=== PATIENT | female | born 1985 | race Hispanic/Latino ===

== ENCOUNTER 2020-01-23 08:02 | Emergency (ER) | payer SELFPAY ==
[2020-01-23 08:40] VITALS: BP 111/63; PULSE 90; RESP 16; TEMP 36.3; O2SAT 99
--- NOTE | 2020-01-23 08:56 | ED.GENADULT ---
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 Denies injury. Denies any urinary symptoms to include dysuria or hematuria. Denies fever, nausea, vomiting, constipation, diarrhea. Currently rates her pain 7/10 and has been taking Tylenol without relief. MD complaint: Left flank pain Related Data Home Medications Medication Instructions Recorded Confirmed No Home Medications 01/23/20 01/23/20 Allergies Allergy/AdvReac Type Severity Reaction Status Date / Time No Known Allergies Allergy Verified 01/23/20 08:50 Review of Systems Review of Systems: Narrative: CONSTITUTIONAL: Denies body aches, fever, chills, or sweats. EYES: Denies visual changes, redness, or discharge. ENT: Denies rhinorrhea, congestion, sore throat, or otalgia. CARDIOVASCULAR: Denies chest pain, palpitations, or edema. RESPIRATORY: Denies cough or dyspnea. GASTROINTESTINAL: Denies abdominal pain, nausea, vomiting, or diarrhea. GENITOURINARY: Denies dysuria or hematuria.+ Left flank pain SKIN: Denies rash, itching, or wounds. MUSCULOSKELETAL: Denies back pain, joint pain, or myalgia. NEUROLOGIC: Denies headache, numbness, tingling, or weakness. PSYCH: Denies depression or anxiety. PMFSH Comments At time of signature, I have reviewed and agree with nursing past medical, surgical, social and family history unless otherwise noted. Please see nursing chart for further information. There is no relevant family history pertinent to the presenting complaint Exam Narrative: Exam Narrative: GENERAL: Well-appearing, well-nourished, and in mild pain distress. HEAD: Normocephalic, atraumatic. EYES: EOMI. No redness or drainage. Conjunctivae normal. ENT: Mucous membranes pink and moist. NECK: Normal AROM. Supple. No lymphadenopathy. CHEST: No respiratory distress. Clear to auscultation. HEART: Regular rate and rhythm. No murmur appreciated. Normal peripheral pulses. ABDOMEN: Soft, nondistended, normal active bowel sounds.-CVAT. + Tenderness generally. Patient guarding entire abdomen. MUSCULOSKELETAL: No bony tenderness. EXTREMITIES: Normal range of motion. No edema. SKIN: Warm, dry, no rash. Capillary refill normal. Normal skin turgor. NEURO: No focal deficits. Alert and oriented x3. Gait steady. PSYCH: Normal affect. No signs of depression or anxiety. Course Vital Signs Vital signs: Vital Signs Temperature 97.3 F L 01/23/20 08:40 Pulse Rate 90 01/23/20 08:40 Respiratory Rate 16 01/23/20 08:40 Blood Pressure 111/63 01/23/20 08:40 Pulse Oximetry 99 01/23/20 08:40 Temperature 97.3 F L 01/23/20 08:40 Pulse Rate 90 01/23/20 08:40 Respiratory Rate 16 01/23/20 08:40 Blood Pressure 111/63 01/23/20 08:40 Pulse Oximetry 99 01/23/20 08:40 Reviewed Transfer Transfered to: Joce Transfer rationale: Left flank pain Accepting physician: Francisco Medical Decision Making Differential Diagnosis Differential Diagnosis: Kidney stone, pyelonephritis, constipation, diverticulitis, colitis, muscle strain Vital Signs Vital Signs: Vital Signs Temperature 97.3 F L 01/23/20 08:40 Pulse Rate 90 01/23/20 08:40 Respiratory Rate 16 01/23/20 08:40 Blood Pressure 111/63 01/23/20 08:40 Pulse Oximetry 99 01/23/20 08:40 Temperature 97.3 F L 01/23/20 08:40 Pulse Rate 90 01/23/20 08:40 Respiratory Rate 16 01/23/20 08:40 Blood Pressure 111/63 01/23/20 08:40 Pulse Oximetry 99 01/23/20 08:40 Reviewed Critical Care Time Critical Care Time Critical Care Time: No Discharge Plan Discharge Clinical Impression: Acute left flank pain Patient Disposition: Acute Care Hospital Cond
== END 2020-01-23 09:02 | disposition short-term general hospital (02) ==
PROVIDERS: Emergency Provider Nurse Practitioner; PCP Registered Nurse
DX: R10.9 Unspecified abdominal pain (principal)
CPT/HCPCS: 99201; G0463

== ENCOUNTER 2020-01-23 09:27 | Emergency (ER) | payer SELFPAY ==
--- NOTE | ~2020-01-23 | CT_ITS ---
EXAMINATION: CT abdomen pelvis w con DATE: 01/23/2020 10:26 INDICATION: Left flank pain. TECHNIQUE: Computed tomography (CT) of the abdomen and pelvis was performed with 100 mL Omnipaque 350 intravenous contrast. Automated exposure control and iterative reconstruction technique were employe d. The dose-length product was 393.35 mGy-cm. COMPARISON: None. FINDINGS: The visualized portions of the lung bases demonstrate mild atelectasis. No pleural effusion . The heart size is normal. The liver and spleen are normal. There are gallstones in the gallbladder, which is normal in size. The pancreas and adrenal glands are normal. There are cysts in the kidneys measuring up to 1.9 cm on the left. There are no dilated loops of bowel. The appendix is normal. Ther e are no pathologically enlarged lymph nodes. There is no free intraperitoneal fluid. There is mild t horacic spondylosis. IMPRESSION: 1. No etiology for the patient's symptoms. Reviewed, dictated and finalized at location A.
[2020-01-23 09:35] VITALS: BP 106/68; PULSE 91; RESP 14; TEMP 36.6; O2SAT 100
--- NOTE | 2020-01-23 09:54 | ED.ABDPAIN ---
HPI - Abdominal Pain General Chief Complaint: Back Pain/Injury Stated Complaint: L flank pain from UC Time Seen by Provider: 01/23/20 09:43 History of Present Illness HPI narrative: Pain in left flank and LUQ for about the past week. Associated with dyuria and urinary frequency. She has had this pain in the past without seeking care. No fever, chills, diarrhea. Related Data Allergies Allergy/AdvReac Type Severity Reaction Status Date / Time No Known Allergies Allergy Verified 01/23/20 08:50 Review of Systems Review of Systems: All systems reviewed & are unremarkable except as noted in HPI and below Constitutional: Constitutional: Denies fever(s) Cardiovascular: Cardiovascular: Denies chest pain Respiratory: Respiratory: Denies dyspnea Genitourinary: Genitourinary: Denies hematuria, Reports nocturia and Reports dysuria [facility] Social History Social History Gender identity (if verbalized by the patient): Female Exam Const: General: healthy appearing, no acute distress and alert Orientation/consciousness: patient oriented x3 HENMT: Head: normal to inspection Neck: Neck: normal visual inspection and no lymphadenopathy Chest: Chest palpation & inspection: no tenderness Resp: Effort & Inspection: normal respiratory effort Auscultation: clear to auscultation bilaterally, no rales, no rhonchi and no wheezes Cardio: Jugular venous distension: no JVD Rate: regular rate Rhythm: regular rhythm Heart sounds: no murmurs GI: Inspection: non-distended GI Palp: Yes Soft to palpation, Yes Tenderness to palpation present (GI), No Guarding due to palpation present (GI) and No Rebound tenderness present : General: Yes no CVA tenderness Skin: General skin exam: normal color Neuro: General: patient oriented x3 and moves all extremities Speech: normal speech Extrem: General: no edema Psych: Appearance: well kempt Affect: normal affect Course Vital Signs Vital signs: Vital Signs Temperature 36.6 C 01/23/20 09:35 Pulse Rate 91 01/23/20 09:35 Respiratory Rate 14 01/23/20 09:35 Blood Pressure 106/68 01/23/20 09:35 Pulse Oximetry 100 01/23/20 09:35 Temperature 36.6 C 01/23/20 09:35 Pulse Rate 64 01/23/20 11:35 Respiratory Rate 14 01/23/20 11:35 Blood Pressure 110/65 01/23/20 11:35 Pulse Oximetry 99 01/23/20 11:35 MDM - Abdominal Pain Lab Data Result diagrams: 01/23/20 09:51 01/23/20 10:36 Labs: Lab Results 01/23/20 01/23/20 01/23/20 Range/Units 09:51 09:51 10:12 WBC 5.1 (4.5-10.0) K/mm3 RBC 4.32 (4.2-5.4) M/mm3 Hgb 13.9 (12.0-15.0) g/dL Hct 41.2 (37.0-47.0) % MCV 95.4 (80-100) fl MCH 32.2 (26-34) pg MCHC 33.7 (32-36) g/dl RDW 12.3 (11.5-14.5) % Plt Count 289 (150-375) k/mm3 MPV 9.8 (7.4-10.4) fl Immature Gran % (Auto) 0.2 (0-0.5) % Neut % (Auto) 48.2 (45.5-73.1) % Lymph % (Auto) 41.1 (18.3-44.2) % Sullivan % (Auto) 8.0 (2.6-8.5) % Eos % (Auto) 2.1 (0-4.4) % Baso % (Auto) 0.4 (0.2-1.2) % Lymph # (Auto) 2.11 (0.9-3.2) K/mm3 Sullivan # (Auto) 0.4 (0.1-0.6) K/mm3 Eos # (Auto) 0.1 (0-0.3) K/mm3 Baso # (Auto) 0.0 (0.0-0.1) K/mm3 Abs Immat Gran (auto) 0.01 (0.00-0.031) K/mm3 Absolute Neuts (auto) 2.5 (1.3-6.7) K/mm3 Absolute Nucleated RBC 0.0 (0.0-0.012) K/mm3 Nucleated RBC % 0.0 (0.0-0.2) % Sodium (137-145) mmol/L Potassium (3.4-5.0) mmol/L Chloride (98-107) mmol/L Carbon Dioxide (22-30) mmol/L BUN (7-17) mg/dL Creatinine 0.60 (0.7-1.2) mg/dL Estim Creat Clear Calc 109 ml/min Estimated GFR > 60 (59 - ) Glucose (65-105) mg/dL Calcium (8.4-10.2) mg/dL Total Bilirubin (0.2-1.3) mg/dL Direct Bilirubin (0-0.3) mg/dL AST (14-36) U/L ALT (4-35) U/L Alkaline Phosphatase (38-126) U/L Total Protein
[2020-01-23 10:01] LABS: Basophils Percent Auto 0.4 % (0.2-1.2); Eosinophils Absolute Auto 0.1 K/mm3 (0-0.3); Eosinophils Percent Auto 2.1 % (0-4.4); Hematocrit 41.2 % (37.0-47.0); Hemoglobin 13.9 g/dL (12.0-15.0); Immature Granulocyte Absolute 0.01 K/mm3 (0.00-0.031); Immature Granulocyte Percent A 0.2 % (0-0.5); Lymphocytes Absolute Auto 2.11 K/mm3 (0.9-3.2); Lymphocytes Percent Auto 41.1 % (18.3-44.2); Mean Corpuscular HGB Conc 33.7 g/dl (32-36); Mean Corpuscular Hemoglobin 32.2 pg (26-34); Mean Corpuscular Volume 95.4 fl (80-100); Mean Platelet Volume 9.8 fl (7.4-10.4); Monocytes Absolute Auto 0.4 K/mm3 (0.1-0.6); Neutrophils Absolute Auto 2.5 K/mm3 (1.3-6.7); Neutrophils Percent Auto 48.2 % (45.5-73.1); Platelet Count Result 289 k/mm3 (150-375); Red Blood Count 4.32 M/mm3 (4.2-5.4); Red Cell Distribution Width 12.3 % (11.5-14.5); White Blood Count 5.1 K/mm3 (4.5-10.0)
[2020-01-23 10:05] LABS: Add Urine Microscopic? YES; Appearance Urine Clear (Clear); Bacteria Urine 1+ /hpf; Bilirubin Urine Negative (Negative); Blood Urine 1+ (Negative); Color Urine Yellow (Yellow); Glucose Urine UA Negative (Negative); Ketones Urine Negative (Negative); Leukocyte Esterase Ur Negative LEU/UL (Negative); Mucus Urine Rare /lpf; Nitrate Urine Positive (Negative); Protein Urine Negative (Negative); Specific Grav Ur 1.021 (1.001-1.035); Squamous Epithelial Cell Urine Moderate /hpf (Few); Urobilinogen Urine Negative mg/dL (<2.0); WBC Urine 0-3 /hpf
[2020-01-23 10:14] LABS: Estimated CRCL calculation 109 ml/min; Estimated Glomerular Filt Rate > 60
[2020-01-23 10:56] LABS: Blood Urea Nitrogen 10 mg/dL (7-17); Calcium 8.6 mg/dL (8.4-10.2); Carbon Dioxide 26 mmol/L (22-30); Chloride 104 mmol/L (98-107); Estimated CRCL calculation 128 ml/min; Estimated Glomerular Filt Rate > 60; Glucose 95 mg/dL (65-105); Potassium 3.8 mmol/L (3.4-5.0); Sodium 136 mmol/L (137-145)
[2020-01-23 10:58] LABS: Alanine Aminotransferase 23 U/L (4-35); Albumin Level 3.9 g/dL (3.5-5.1); Alkaline Phosphatase 65 U/L (38-126); Aspartate Amino Transferase 26 U/L (14-36); Bilirubin,Total 0.5 mg/dL (0.2-1.3); Lipase 50 U/L (23-300)
[2020-01-23] MEDS: NITROFURANTOIN MONOHYD MACROCR 100 MG CAP PO (11:28)
[2020-01-23 11:35] VITALS: BP 110/65; PULSE 64; RESP 14; O2SAT 99
== END 2020-01-23 11:38 | disposition home or self-care (01) ==
PROVIDERS: Emergency Provider Emergency Medicine; PCP Registered Nurse
DX: N30.00 Acute cystitis without hematuria (principal)
CPT/HCPCS: 36415; 74177; 80048; 80076; 81001; 81025; 83690; 85025; 99284; A9270; Q9967

== ENCOUNTER 2022-06-05 08:17 | Emergency (ER) | payer SELFPAY ==
--- NOTE | ~2022-06-05 | US_ITS ---
EXAMINATION: US OB <= 14 weeks fetus DATE: 06/05/2022 10:15 INDICATION: Vaginal bleeding in early patency. TECHNIQUE: Real-time transabdominal and transvaginal pelvic ultrasound was performed. COMPARISON: None. FINDINGS: TRANSABDOMINAL ULTRASOUND: The uterus measures 9.4 x 6.1 x 6.9 cm. TRANSVAGINAL ULTRASOUND: There is a fluid collection in the endometrial complex with mean diameter of 1.9 cm, which is likely a gestational sac with estimated gestational age of 6 weeks and 6 days +/- 4 days. A 3 mm structure within the endometrial sac may be a pole. A yolk sac is not identified. There is a 1.7 cm isoechoic submucosal fibroid. The right ovary measures 3.7 x 2.9 x 3.1 cm. The lef t ovary is not visualized. There is no free fluid in the pelvis. IMPRESSION: 1. Single intrauterine gestation with estimated date of delivery of 01/23/2023. 2. Uterine fibroid. Reviewed, dictated and finalized at location B.
[2022-06-05 08:24] VITALS: BP 116/73; PULSE 73; RESP 18; TEMP 36.1; O2SAT 100
--- NOTE | 2022-06-05 08:27 | ED.FEMALEGU ---
HPI - Female Genitourinary General Chief complaint: Vaginal Bleeding Stated complaint: vag bleeding-7 weeks Time Seen by Provider: 06/05/22 08:27 Source: patient Mode of arrival: ambulatory Limitations: no limitations History of Present Illness HPI Narrative: Patient is a 36-year-old female currently 8 weeks dated by last menstrual period presenting to the emergency department for evaluation of pelvic pain, cramping and vaginal bleeding. 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 No history of ultrasound. Patient reports she has had intermittent bleeding over the past 2 weeks. She reports aching, pelvic cramping in the lower abdomen without radiation to the back. No significant distention or diarrhea. No dysuria or hematuria. Patient has not been keeping a pad count, states that bleeding is not heavy enough to warrant wearing pads. Describes it more as spotting. Denies passing of large blood clots. Patient believes her blood type is O+. Related Data Allergies Allergy/AdvReac Type Severity Reaction Status Date / Time No Known Allergies Allergy Verified 01/23/20 08:50 Review of Systems Review of Systems: CONSTITUTIONAL: Denies fever, chills, or sweats. EYES: Denies visual changes, redness, or discharge. ENT: Denies rhinorrhea, congestion, sore throat, or otalgia. CARDIOVASCULAR: Denies chest pain, palpitations, or edema. RESPIRATORY: Denies cough or dyspnea. GASTROINTESTINAL: Reports pelvic pain, denies nausea, vomiting, diarrhea : Reports vaginal bleeding, denies dysuria or hematuria SKIN: Denies rash or itching. MUSCULOSKELETAL: Denies back pain, joint pain, or myalgia. NEUROLOGIC: Denies headache, numbness, or weakness. [facility] Social History Social History (Updated 06/05/22 @ 08:44 by Amy Giang MD) Smoking status: Never smoker Alcohol intake: never Substance use: never Living arrangements: with family Gender identity (if verbalized by the patient): Female Exam Narrative: GENERAL: Awake, alert, conversant HEAD: Normocephalic, atraumatic. EYES: PERRLA and EOMI. ENT: Nares clear, no rhinorrhea or epistaxis. Mucous membranes moist. NECK: Supple. CHEST: No respiratory distress, breathing even and non labored HEART: Regular rate, sinus rhythm ABDOMEN:Non distended, non tender : Labia majora and minora normal without lesions. Vagina with scant blood. No cervical motion tenderness. No adnexal tenderness or fullness bilaterally. Cervix is mildly erythemaous, non tender. No CMT. Small amount of mucoid discharge present. EXTREMITIES: Normal range of motion. No edema. SKIN: Warm, dry, no rash. NEURO:No focal deficits. Alert and oriented x3 Course Vital Signs Vital signs: Vital Signs Temperature 36.1 C L 06/05/22 08:24 Pulse Rate 73 06/05/22 08:24 Respiratory Rate 18 06/05/22 08:24 Blood Pressure 116/73 06/05/22 08:24 Pulse Oximetry 100 06/05/22 08:24 Oxygen Delivery Room Air 06/05/22 08:24 Temperature 36.1 C L 06/05/22 08:24 Pulse Rate 70 06/05/22 11:00 Respiratory Rate 16 06/05/22 11:00 Blood Pressure 103/70 06/05/22 11:00 Pulse Oximetry 98 06/05/22 11:00 Oxygen Delivery Room Air 06/05/22 08:24 MDM - Female Genitourinary MDM Narrative Medical decision making narrative: Patient presenting for evaluation of vaginal bleeding in early . At the time of initial assessment, ABCs are intact and vital signs are stable. Patient without very significant pain on exam, and on pelvic exam, is noted to have scant blood, no large blood clots or brisk bleeding. No significant tenderness although her cervix is slightly friable appearing and erythematous. Patient denies history of chlamydia and gonorrhea however will send swabs from our facility. Patient was treated per guidelines with Rocephin and azithromycin which is indicated in . Given no severe symptoms, patient does not require admi
[2022-06-05] MEDS: SODIUM CHLORIDE 0.9% IV 1,000 ML 999 ML IV CONT (08:44)
[2022-06-05] MEDS: ACETAMINOPHEN 500 MG TABLET 1000 MG PO (08:46)
[2022-06-05 08:48] LABS: Basophils Percent Auto 0.3 % (0.2-1.2); Eosinophils Absolute Auto 0.1 K/mm3 (0-0.3); Eosinophils Percent Auto 1.3 % (0-4.4); Hematocrit 43.1 % (37.0-47.0); Hemoglobin 14.2 g/dL (12.0-15.0); Immature Granulocyte Absolute 0.02 K/mm3 (0.00-0.031); Immature Granulocyte Percent A 0.3 % (0-0.5); Lymphocytes Absolute Auto 2.35 K/mm3 (0.9-3.2); Lymphocytes Percent Auto 38.5 % (18.3-44.2); Mean Corpuscular HGB Conc 32.9 g/dl (32-36); Mean Corpuscular Hemoglobin 32.1 pg (26-34); Mean Corpuscular Volume 97.5 fl (80-100); Mean Platelet Volume 9.2 fl (7.4-10.4); Monocytes Absolute Auto 0.4 K/mm3 (0.1-0.6); Monocytes Percent Auto 6.4 % (2.6-8.5); Neutrophils Absolute Auto 3.2 K/mm3 (1.3-6.7); Neutrophils Percent Auto 53.2 % (45.5-73.1); Platelet Count Result 299 k/mm3 (150-375); Red Blood Count 4.42 M/mm3 (4.2-5.4); Red Cell Distribution Width 11.8 % (11.5-14.5); White Blood Count 6.1 K/mm3 (4.5-10.0)
[2022-06-05 09:14] LABS: Partial Thromboplastin Time 27.6 SECONDS (22.3-36.8); Prothrombin Time 12.4 Seconds (11.1-14.7)
[2022-06-05 09:16] LABS: Alanine Aminotransferase 66 U/L (6-35); Albumin Level 4.3 g/dL (3.5-5.1); Alkaline Phosphatase 73 U/L (38-126); Anion Gap 9 mmol/L (8-16); Aspartate Amino Transferase 42 U/L (14-36); Bilirubin,Total 0.3 mg/dL (0.2-1.3); Blood Urea Nitrogen 12 mg/dL (7-17); Carbon Dioxide 24 mmol/L (22-30); Chloride 104 mmol/L (98-107); Estimated CRCL calculation 102 ml/min; Estimated Glomerular Filt Rate > 60; Glucose 115 mg/dL (65-110); Sodium 137 mmol/L (137-145)
[2022-06-05 10:13] LABS: Add Urine Microscopic? YES; Appearance Urine Cloudy (Clear); Bacteria Urine Trace /hpf; Bilirubin Urine Negative (Negative); Blood Urine 1+ (Negative); Color Urine Yellow (Yellow); Glucose Urine UA Negative (Negative); Ketones Urine Negative (Negative); Leukocyte Esterase Ur Negative LEU/UL (Negative); Mucus Urine Rare /lpf; Nitrate Urine Negative (Negative); Protein Urine Negative (Negative); Squamous Epithelial Cell Urine Many /hpf (Few); Urobilinogen Urine Negative mg/dL (<2.0)
[2022-06-05 11:00] VITALS: BP 103/70; PULSE 70; RESP 16; O2SAT 98
[2022-06-05] MEDS: AZITHROMYCIN 250 MG TABLET 1000 MG PO (12:09)
[2022-06-05] MEDS: cefTRIAXone 1 GM VIAL 0.5 GM IM (12:11)
[2022-06-05] MEDS: LIDOCAINE HCL 1% LOCAL INJ 20 ML VIAL (12:11)
[2022-06-05 12:35] VITALS: BP 116/72; PULSE 70; RESP 16; O2SAT 98
== END 2022-06-05 12:40 | disposition home or self-care (01) ==
PROVIDERS: Emergency Provider Emergency Medicine; PCP Registered Nurse
DX: O20.0 Threatened abortion (principal); O34.11 Maternal care for benign tumor of corpus uteri, first trimester; D25.0 Submucous leiomyoma of uterus; Z3A.01 Less than 8 weeks gestation of pregnancy
CPT/HCPCS: 36415; 76801; 80053; 81001; 84702; 85025; 85461; 85610; 85730; 87070; 87491; 87591; 87808; 96360; 96361; 96372; 99284; A9270; J0696; J7030

== ENCOUNTER 2022-06-13 21:05 | Emergency (ER) | payer MEDICAID, SELFPAY ==
[2022-06-13] VITALS (37 sets, daily range): BP systolic 91–153; BP diastolic 65–115; PULSE 68–109; RESP 11–27; TEMP 36.7–36.8; O2SAT 99–100
--- NOTE | ~2022-06-13 | US_ITS ---
US OB <= 14 weeks fetus DATE: 06/13/2022 22:40 INDICATION: Heavy vaginal bleeding containing products of conception TECHNIQUE: Real-time imaging via transabdominal approach COMPARISON: 06/05/2022 obstetrical ultrasound examination FINDINGS: The uterus measures 10 cm height, 6.7 cm transverse and 5.7 cm AP dimension. No intrauterine gestational sac is identified. Heterogeneous thickened endometrial echo complex is no kari consistent with retained products of conception. 2.2 cm right ovarian cyst. The right ovary measures 3.9 x 3.2 x 2.3 cm. Left ovary is not visualized. No abnormal free pelvic fluid collection is detected. IMPRESSION: Spontaneous , retained products of conception Reviewed, dictated and finalized at [facility]. Reviewed, dictated and finalized at location A.
[2022-06-13 21:28] LABS: Basophils Percent Auto 0.5 % (0.2-1.2); Eosinophils Absolute Auto 0.1 K/mm3 (0-0.3); Eosinophils Percent Auto 0.9 % (0-4.4); Hematocrit 40.2 % (37.0-47.0); Hemoglobin 13.4 g/dL (12.0-15.0); Immature Granulocyte Absolute 0.01 K/mm3 (0.00-0.031); Immature Granulocyte Percent A 0.1 % (0-0.5); Lymphocytes Absolute Auto 3.14 K/mm3 (0.9-3.2); Lymphocytes Percent Auto 38.4 % (18.3-44.2); Mean Corpuscular HGB Conc 33.3 g/dl (32-36); Mean Corpuscular Hemoglobin 32.2 pg (26-34); Mean Corpuscular Volume 96.6 fl (80-100); Mean Platelet Volume 9.5 fl (7.4-10.4); Monocytes Absolute Auto 0.4 K/mm3 (0.1-0.6); Monocytes Percent Auto 5.1 % (2.6-8.5); Neutrophils Absolute Auto 4.5 K/mm3 (1.3-6.7); Platelet Count Result 310 k/mm3 (150-375); Red Blood Count 4.16 M/mm3 (4.2-5.4); Red Cell Distribution Width 11.9 % (11.5-14.5); White Blood Count 8.2 K/mm3 (4.5-10.0)
[2022-06-13] MEDS: fentaNYL CITRATE INJ (*CRX) 100 MCG/2 ML VIAL 50 MCG IV PUSH (21:36)
[2022-06-13] MEDS: ONDANSETRON INJ 4 MG/2 ML VIAL IV PUSH (21:36)
[2022-06-13] MEDS: SODIUM CHLORIDE 0.9% IV 1,000 ML 999 ML (21:37)
--- NOTE | 2022-06-13 21:42 | ED.PREGNANCY ---
HPI - General Chief complaint: Vaginal Bleeding <Cordelia Eagle PA-C - Last Filed: 06/14/22 00:49> Stated complaint: 6 weeks bleeding <Cordelia Eagle PA-C - Last Filed: 06/14/22 00:49> Time Seen by Provider: 06/13/22 21:36 <Cordelia Eagle PA-C - Last Filed: 06/14/22 00:49> Source: patient <SHANAE Patel Last Filed: 06/14/22 00:49> Mode of arrival: wheelchair <SHANAE Patel Last Filed: 06/14/22 00:49> Limitations: language barrier ([employer] aerial photograph interpreter used) <Cordelia Eagle PA-C - Last Filed: 06/14/22 00:49> History of Present Illness HPI Narrative: This is a 36-year-old female, about 7 weeks , that presents to the emergency department for vaginal bleeding. Reports she has been having vaginal bleeding over the last couple of days. Over the last couple of hours it has become very heavy. She is soaking through a pad very quickly. She has started to feel lightheaded and nauseous. She was evaluated in our ER and found to have an intrauterine a week ago. She has not had follow-up with OB yet. Denies fever. <Cordelia Eagle PA-C - Last Filed: 06/14/22 00:49> Related Data Allergies/Adverse reactions: Allergies Allergy/AdvReac Type Severity Reaction Status Date / Time No Known Allergies Allergy Verified 01/23/20 08:50 <Cordelia Eagle PA-C - Last Filed: 06/14/22 00:49> Review of Systems Review of Systems: CONSTITUTIONAL: Denies fever GASTROINTESTINAL: Reports abdominal pain, nausea NEUROLOGIC: Reports weakness. <SHANAE Patel Last Filed: 06/14/22 00:49> All systems reviewed & are unremarkable except as noted in HPI and below <SHANAE Patel Last Filed: 06/14/22 00:49> [facility] Past Medical History Medical History: Medical History (Updated 06/13/22 @ 23:28 by Cordeila Eagle PA-C) No active medical problems <Cordelia Eagle PA-C - Last Filed: 06/14/22 00:49> Social History Social History: Social History (Updated 06/05/22 @ 08:44 by Amy Giang MD) Smoking status: Never smoker Alcohol intake: never Substance use: never Gender identity (if verbalized by the patient): Female <Cordelia Eagle PA-C - Last Filed: 06/14/22 00:49> Exam Narrative: GENERAL: Pale, diaphoretic, uncomfortable HEAD: Normocephalic, atraumatic. EYES: EOMI. CHEST: Clear to auscultation. No respiratory distress. No wheezes rales or rhonchi HEART: Regular rate and rhythm. No murmur heard. Normal peripheral pulses. ABDOMEN: Soft, nontender, nondistended, normal active bowel sounds. EXTREMITIES: Normal range of motion. No edema. SKIN: Warm, dry, no rash. NEURO: No focal deficits. Alert and oriented x3. PSYCH: Normal mood and affect PELVIC: Large clots with significant amount of bleeding noted in the vaginal vault. 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 Patient underwent ultrasound which showed possible retained products of conception. The patient was initially hypotensive and diaphoretic with heavy bleeding. She had greater than 300 mL of blood from the vaginal vault. Patient was transfused due to acuity of situation after the vault was cleared the patient had reduction in amount of bleeding. <Noé Camarillo MD - Last Filed: 06/14/22 01:30> Consultations Consultation #1: Spoke with Dr. Flores about patient and workup. Patient is to have close follow up in clinic. Will be given return precautions <Cordelia Eagle PA-C - Last Filed: 06/14/22 00:49> Date: 06/13/22 <Cordelia Eagle PA-C - Last Filed: 06/14/22 00:49> Time: 23:26 <SHANAE Patel F
[2022-06-13] MEDS: TUBING, BLOOD SET 2 EACH XX (21:44)
[2022-06-13] MEDS: SODIUM CHLORIDE 0.9% IV 500 ML 999 ML (21:45)
[2022-06-13 22:01] LABS: Alanine Aminotransferase 35 U/L (6-35); Albumin Level 4.7 g/dL (3.5-5.1); Alkaline Phosphatase 72 U/L (38-126); Anion Gap 14 mmol/L (8-16); Aspartate Amino Transferase 31 U/L (14-36); Bilirubin,Total 0.7 mg/dL (0.2-1.3); Blood Urea Nitrogen 13 mg/dL (7-17); Carbon Dioxide 21 mmol/L (22-30); Chloride 102 mmol/L (98-107); Estimated CRCL calculation 122 ml/min; Estimated Glomerular Filt Rate > 60; Glucose 101 mg/dL (65-110); Potassium 3.4 mmol/L (3.4-5.0); Sodium 137 mmol/L (137-145)
--- NOTE | 2022-06-13 22:30 | PC.NURSE ---
2145 emergency blood transfusion started after consent obtained. Unable to back time blood transfusion in [facility] for unknown reason.
--- NOTE | 2022-06-13 22:33 | PC.NURSE ---
2145 blood transfusion started Pre transfusion VS T-98.0, p-88, RR-14 SPO2 99%, BP 97/70, 15 after transfusion 2200 T-98.2. P- 96 RR-15, SPO2-100% BP 119/83 post transfusion 98.3, P-88 RR-17 SPO2-100% BP 113/85
[2022-06-14] VITALS: BP 118/75; PULSE 95; RESP 16; TEMP 36.8; O2SAT 99
[2022-06-14 00:46] LABS: Hematocrit 37.2 % (37.0-47.0); Hemoglobin 12.8 g/dL (12.0-15.0)
[2022-06-14 01:00] VITALS: BP 116/81; PULSE 90; RESP 16; TEMP 36.8; O2SAT 99
--- NOTE | 2022-06-14 01:32 | PC.NURSE ---
both units of blood infused in this ED visit with total volume of 700ml of PRBC infused
== END 2022-06-14 01:50 | disposition home or self-care (01) ==
PROVIDERS: Physician Assistant; Emergency Provider Emergency Medicine; PCP Registered Nurse
DX: O03.4 Incomplete spontaneous abortion without complication (principal)
CPT/HCPCS: 36415; 36430; 76801; 80053; 84702; 85014; 85018; 85025; 85461; 86920; 88305; 96361; 96374; 96375; 99285; J2405; J3010; J7030; J7050; P9016

== ENCOUNTER 2022-07-04 08:19 | Outpatient (CLI) | payer MEDICAID, SELFPAY ==
--- NOTE | ~2022-07-04 | US_ITS ---
EXAMINATION: US pelvic complete DATE: 07/04/2022 09:00 INDICATION: Miscarriage TECHNIQUE: Multiple transabdominal and endovaginal sonographic images of the pelvis were obtained. COMPARISON: 06/13/2022 FINDINGS: The uterus measures 8.7 x 4.7 x 5.7 cm. The endometrial complex measures 17 mm. The right o vary measures 3.3 x 1.4 x 2.1 cm. The left ovary measures 3.6 x 1.9 x 2.9 cm. There is normal vascula r flow in the ovaries. There is no free fluid in the pelvis. IMPRESSION: 1. Persistent mild endometrial thickening which could reflect retained products of conception. Reviewed, dictated and finalized at location F. 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
== END 2022-07-04 08:20 | disposition home or self-care (01) ==
PROVIDERS: PCP Registered Nurse; Visit Provider Registered Nurse
DX: O03.9 Complete or unspecified spontaneous abortion without complication (principal); Z3A.00 Weeks of gestation of pregnancy not specified
CPT/HCPCS: 76856